=== PATIENT | female | born 1975 | race Caucasian/White ===

== ENCOUNTER 2017-11-19 19:26 | Emergency (ER) | payer MEDICAID, SELFPAY ==
[2017-11-19 19:27] VITALS: BP 124/86; PULSE 102; RESP 20; TEMP 36.9; O2SAT 99; BMI 25.6
--- NOTE | 2017-11-19 19:56 | ED.RN ---
DR HINOJOSA AT THE BEDSIDE ATTEMTING TO SPEAK WITH THE PT. PT MOVING AROUND THE BED NOT ANSWERING QUESTIONS.
[2017-11-19 20:35] LABS: Absolute Lymphocyte Count 3.44 X10^3/ul (0.83-4.51); Absolute Neutrophil Count 9.4 X10^3/uL (2.0-7.7); Basophil# 0.04 X10^3/uL; Basophil% 0.3 % (0-1); Eosinophil# 0.27 X10^3/uL; Eosinophils% 1.9 % (0-5); Hematocrit 41.2 % (37-47); Hemoglobin 14.4 g/dl (12.0-15.0); Lymphocyte # 3.44 X10^3/ul (4.0); Mean Corpuscular Hgb 32.1 pg (27.0-32.0); Monocyte# 1.13 X10^3/uL; Monocyte% 7.9 % (0-10); Neutrophil # 9.43 X10^3/uL (2.7-7.7); Neutrophil % 65.8 % (47-70); Platelet Count 184 K/mm3 (150-450); RBC Distribution Width CV 13.6 % (11.6-14.6); RBC Distribution Width SD 45.4 fl (35.1-43.9); Red Blood Count 4.48 M/mm3 (4.2-5.4); White Blood Count 14.3 K/mm3 (4.4-11.0)
[2017-11-19 20:40] LABS: POSITIVE COUNT NO; POSITIVE DIFFERENTIAL NO; POSITIVE MORPHOLOGY NO
[2017-11-19 21:03] LABS: Pregnancy, Serum, hCG Quali. NEGATIVE Negative (0-9 Nonpreg)
[2017-11-19 21:08] LABS: Anion Gap 4 (5-15); BUN 13 mg/dL (7-18); Calcium,Total 8.4 mg/dL (8.5-10.1); Chloride 105 mmol/L (98-107); Creatinine, Serum 0.72 mg/dL (0.55-1.02); EST Glomerular Filtration Rate 94 mL/min (>60); Est Glom Filt Rate - Afr Amer 114 mL/min (>60); Glucose 93 mg/dL (74-106); Potassium 3.6 mmol/L (3.5-5.1); Sodium Level 140 mmol/L (136-145); Thyroid Stim Hormone (TSH) 0.54 uIU/mL (0.358-3.74)
[2017-11-19 21:12] VITALS: BP 106/60; PULSE 97; RESP 16; O2SAT 97
--- NOTE | 2017-11-19 21:32 | CT_ITS ---
STUDY: CT BRAIN WITHOUT CONTRAST REASON FOR EXAM: Female, 42 years old. Confusion. Substance abuse. RADIATION DOSAGE (If Supplied By Facility): CTDIvol = ( 44.99 ) mGy, DLP = ( 745.49 ) mGycm TECHNIQUE: Transaxial CT imaging of the brain was performed without administration of intravenous contrast material. Individualized dose optimization techniques were used for this CT. COMPARISON: None. FINDINGS: Normal soft tissue structures. Normal calvarium. Normal size ventricles and extra-axial spaces for the patient's age. Normal white matter tracts of the cerebral hemispheres. Normal basal ganglia and thalami. Normal brainstem. Normal cerebellum. There is no intracranial hemorrhage. There are no findings of an acute ischemic infarction. Normal visualized paranasal sinuses. CT/Brain/Head without Contrast IMPRESSION: Normal unenhanced CT scan of the brain. Electronically Signed: Zohaib Castillo MD at 22:44 EDT , Service support ,
[2017-11-19 22:33] VITALS: BP 110/71; PULSE 87; RESP 18; O2SAT 100
--- NOTE | 2017-11-19 23:00 | ED.DCSUM_ITS ---
- ER Visit Summary Date of Service: 11/19/17 Chief Complaint: Substance abuse History of Present Illness: The patient is a 42 F who is clearly intoxicated and unable to give any useful history. Per [facility] the patient had been in rehab and September and was living with a sponsor. She had been clean for approximately 45 days when she went and used what she believes was meth. She had been seen at [facility] emergency department twice and was given fluids and benzodiazepines and discharged. She went back there today and they were concerned that she was not medically stable and have sent her here to be medically stabilized. They report that they will take her back once she is able to answer questions appropriately. Physical Examination: Vitals: Stable. Afebrile. General: Well-nourished and well-developed. Head: Normocephalic atraumatic. Neck: Supple, no lymphadenopathy. No JVD. Nontender. Cardiovascular: Regular rate and rhythm. No murmurs. Respiratory: No respiratory distress. Clear to auscultation bilaterally. Abdominal: Soft, nontender, nondistended, normal bowel sounds. No guarding, rebound, or peritoneal signs. Back: Nontender. Extremities: Nontender, no edema. Skin: Normal color, no rash. Neurologic: Alert and obviously intoxicated. She moves all extremities well. Psych: Normal affect. Test Results: CBC is marked for white count of 14.3. Chem-7 is more for calcium of 8.4. test is negative. Alcohol is negative. CT brain is normal. Emergency Department Course and Treatment: Patient is sleeping comfortably in the emergency department and is not require any sedation. She has been very compliant. Treatment Plan: At this time the patient was clearly intoxicated upon arrival. If she elidia up while here and wants to leave. There is no justification for keeping her against her will. However, if when she awakens she would like to go back to [facility] they will accept her back into rehab again. Disposition: Pending Impression: 1. Substance abuse. This note was generated with [employer] dictation software. It may contain incorrect words, spelling, and punctuation that were not noted in review of the chart prior to signing ED Disposition - Plan for ED Patient: Chief Complaint: Substance Abuse
[2017-11-19 23:10] VITALS: BP 119/76; PULSE 87; RESP 16; O2SAT 97
[2017-11-20] VITALS (11 sets, daily range): BP systolic 118–138; BP diastolic 64–89; PULSE 74–88; RESP 16–21; O2SAT 97–99
--- NOTE | 2017-11-20 05:27 | ED.RN ---
DR. ELENA CHECKED ON THE PATIENT AND HE SAID SHE DID ANSWER HIM BUT IS UNABLE TO MEDICALLY ASSESS. HE ALSO TOLD THIS NURSE THAT WE DID NOT HAVE TO COLLECT URINE FROM HER UNTIL SHE BECOMES MORE AWAKE.
--- NOTE | 2017-11-20 06:56 | NURSING ---
PATIENT IS ANSWERING SOME QUESTIONS, BUT GOES RIGHT BACK TO SLEEP.
--- NOTE | 2017-11-20 10:53 | ED.DEP ---
ED Disposition - Plan for ED Patient: Chief Complaint: Substance Abuse Instructions: ED Drug Abuse General Referrals: Care Physician,No Primary [Primary Care Provider] -
== END 2017-11-20 11:48 | disposition short-term general hospital (02) ==
PROVIDERS: Emergency Provider Emergency Medicine
DX: F19.10 Other psychoactive substance abuse, uncomplicated (principal)
CPT/HCPCS: 36415; 70450; 80048; 80320; 84443; 84703; 85025; 99283; G0480